=== PATIENT | female | born 1955 | race American Indian/Alaskan Native ===

== ENCOUNTER 2017-08-31 09:15 | Emergency (ER) | payer MEDICAID, MEDICARE ==
[2017-08-31] MEDS ORDERED: Albuterol 0.083% 2.5 MG/3 ML Neb Soln NEB ONE (09:28)
[2017-08-31] MEDS ORDERED: Ibuprofen 200 MG Tab PO PRN (09:29)
--- NOTE | 2017-08-31 09:37 | EDM.PDOC ---
ED HPI GENERAL MEDICAL PROBLEM - General Chief Complaint: Respiratory Problem Stated Complaint: SHORTNESS OF BREATH Time Seen by Provider: 08/31/17 09:25 Source of Information: Reports: Patient, EMS History Limitations: Reports: No Limitations - History of Present Illness INITIAL COMMENTS - FREE TEXT/NARRATIVE: Patient was seen in clinic on saturday and was sent home with duo-nebs and prednisone for COPD. She does not think the prednisone is helping and is making symptoms worse. Oxygen helps breath better. She is still having a hard time getting air into lungs. Onset: Today Onset Date: 08/31/17 Onset Time: 08:00 Duration: Day(s): (5), Chronic, Getting Worse Severity: Moderate Improves with: Reports: Other (oxygen) Worsens with: Reports: None Context: Reports: Activity, Exercise Associated Symptoms: Reports: Headaches, Shortness of Breath Treatments DRINK MIXER: Reports: Breathing Treatments Headache Pain Score (Numeric/FACES): 2 - Related Data Allergies Allergy/AdvReac Type Severity Reaction Status Date / Time aspirin Allergy Bleeding Verified 08/31/17 09:24 Home Meds: Home Meds Albuterol Sulfate [Albuterol Sulfate HFA] 2 puff INH Q4HR PRN 03/22/15 [History] Albuterol/Ipratropium [DuoNeb 3.0-0.5 MG/3 ML] 3 ml NEB Q4H #3 neb 03/22/15 [Rx] Past Medical History Respiratory History: Reports: COPD Social & Family History - Tobacco Use Smoking Status *Q: Current Every Day Smoker Years of Tobacco use: 40 Packs/Tins Daily: 0.5 - Alcohol Use Days Per Week of Alcohol Use: 0 - Recreational Drug Use Recreational Drug Use: No ED ROS GENERAL - Review of Systems Review Of Systems: ROS reveals no pertinent complaints other than HPI. Constitutional: Reports: Weakness, Fatigue HEENT: Reports: No Symptoms Respiratory: Reports: Shortness of Breath, Other (Cannot get air into lungs) Cardiovascular: Reports: Blood Pressure Problem, Dyspnea on Exertion Endocrine: Reports: No Symptoms GI/Abdominal: Reports: No Symptoms : Reports: No Symptoms Musculoskeletal: Reports: No Symptoms Skin: Reports: No Symptoms Neurological: Reports: Headache Psychiatric: Reports: No Symptoms Hematologic/Lymphatic: Reports: No Symptoms Immunologic: Reports: No Symptoms Free Text/Narrative/Comment: Patient was seen in clinic on saturday at [facility] and sent home with edmundo nebs and prednisone. ED EXAM, GENERAL - Physical Exam Exam: See Below Exam Limited By: No Limitations General Appearance: Alert, No Apparent Distress Eye Exam: Bilateral Eye: Normal Inspection Ears: Normal External Exam Nose: Normal Inspection Throat/Mouth: Normal Inspection, No Airway Compromise Head: Atraumatic, Normocephalic Neck: Normal Inspection, Supple, Full Range of Motion. No: Carotid Bruit Respiratory/Chest: Decreased Breath Sounds, Rales. No: Accessory Muscle Use, Retractions, Prolonged Expiration Cardiovascular: Normal Peripheral Pulses, Regular Rate, Rhythm, No Edema, No JVD , No Murmur. No: Diastolic Murmur, Systolic Murmur Peripheral Pulses: 2+: Radial (R) GI/Abdominal: Normal Bowel Sounds, Soft, Non-Tender. No: Distended Extremities: Normal Range of Motion Neurological: Alert, Oriented, CN II-XII Intact. No: Confused, Disoriented, Slow to Respond, Abnormal Gait Psychiatric: Normal Affect, Normal Mood Skin Exam: Warm, Dry, Intact, No Rash Lymphatic: No Adenopathy Course - Vital Signs Last Recorded V/S: Last Vital Signs Temp 35.4 C 08/31/17 09:15 Pulse 127 H 08/31/17 09:15 Resp 28 H 08/31/17 09:15 BP 175/83 H 08/31/17 09:15 Pulse Ox 95 08/31/17 09:15 - Orders/Labs/Meds Orders: Active Orders 24 hr Category Date Time Status RT Aerosol Therapy [RC] ASDIRECTED Care 08/31/17 09:29 Ordered Chest 2V [CR] Stat Exams 08/31/17 09:26 Ordered Ibuprofen [Motrin] Med 08/31/17 09:29 Ordered 400 mg PO Q4H PRN Medication Orders Ibuprofen (Motrin) 400 mg PO Q4H PRN PRN Reason: Pain/Fever Meds: Medications Generic Name Dose Route Start Last Admin Trade Name Freq PRN Reason Stop Dose Admin Ibuprofen 400 mg 08/31/17 09:29 Motrin PO Q4H PRN Pain/Fever Discontinued Medications Generic Name Dose Route Start Last Admin Trade Name Freq PRN Reason Stop Dose Admin Albuterol 2.5 mg 08/31/17 09:28 Proventil Neb Soln NEB 08/31/17 09:29 ONETIME ONE Departure - Departure Time of Disposition: 11:32 Disposition: DC[facility] Condition: Good Clinical Impression: COPD (chronic obstructive pulmonary disease) Qualifiers: COPD type: emphysema Emphysema type: unspecified Qualified Code(s): J43.9 - Emphysema, unspecified - Discharge Information Instructions: Shortness of Breath, [id number], Smoking Cessation, Tips for Success, [id number], Chronic Obstructive Pulmonary Disease Exacerbation, Easy- to-Read Forms: ED Department Discharge Additional Instructions: Patient is to follow-up with her primary care provider on Saturday. She is also instructed to take her DuoNeb every 4 hours. She is also instructed to use her albuterol inhaler when she is short of breath. - My Orders Last 24 Hours: My Active Orders 08/31/17 09:26 Chest 2V [CR] Stat 08/31/17 09:29 RT Aerosol Therapy [RC] ASDIRECTED Ibuprofen [Motrin] 400 mg PO Q4H PRN - Assessment/Plan Last 24 Hours: My Active Orders 08/31/17 09:26 Chest 2V [CR] Stat 08/31/17 09:29 RT Aerosol Therapy [RC] ASDIRECTED Ibuprofen [Motrin] 400 mg PO Q4H PRN
[2017-08-31 10:28] VITALS: BP 148/76
== END 2017-08-31 11:46 | disposition designated cancer center or children's hospital (05) ==
LOC: VM.ED 09:15
DX: J43.9 Emphysema, unspecified (principal); F17.210 Nicotine dependence, cigarettes, uncomplicated; Z88.6 Allergy status to analgesic agent
CPT/HCPCS: 71020; 93005; 94640; 99285; A9270; J7620; 99284-GF

== ENCOUNTER 2017-09-03 16:44 | Inpatient (IN) | payer MEDICAID, MEDICARE ==
[2017-09-03] MEDS ORDERED: Ondansetron 4 MG/2 ML SDV IV PRN (17:05)
[2017-09-03] MEDS ORDERED: Albuterol/Ipratropium 3.0-0.5 MG/3 ML Neb Soln NEB PRN (17:05)
[2017-09-03] MEDS ORDERED: Albuterol 0.083% 2.5 MG/3 ML Neb Soln NEB PRN (17:05)
[2017-09-03] MEDS ORDERED: Acetaminophen 325 MG Tab PO PRN (17:05)
[2017-09-03] MEDS ORDERED: cefTRIAXone 1 GM Vial IVPUSH ONE (17:10)
--- NOTE | 2017-09-03 17:13 | PCM.HP ---
"H&P History of Present Illness - General Date of Service: 09/03/17 Admit Problem/Dx: Admission Diagnosis/Problem Admission Diagnosis/Problem COPD, Severe chronic obstructive pulmonary disease Source of Information: Patient, Family - History of Present Illness Initial Comments - Free Text/Narative: HPI / History / ROS ~ HPI HPI Comments:~Patient is in for ~follow-up exacerbation COPD. ~Not really improving she just picked up her prednisone but intolerant, felt like it made things worse. ~Didn't fill zpack because of cost. ~She gets winded easily. ~The describe some wheeze. ~Not a lot of coughing. ~Denies fever. ~History of severe COPD with last FEV1 in 2011 at 1.2 L or 47% of predicted. ~She does continue to smoke. ~She declined hospital admission two days ago when in ER and is declining today as well. ~She is using duo nebs at home about four times per day she's using albuterol every couple of hours. ~She does not have Combivent or stiolto or long-acting medicine because of cost issues. ~She is on disability for her COPD she is currently working on applications for medical assistance. Shortness of Breath~ Associated symptoms include wheezing. Pertinent negatives include no fever. Fatigue~ Pertinent negatives include no fever. COPD~ She complains of shortness of breath~and wheezing. Pertinent negatives include no fever. Medications MedicationsPriortoVisit Outpatient Medications Prior to Visit Medication Sig Dispense Refill albuterol HFA (ALBUTEROL, VENTOLIN BRAND,) 108 (90 BASE) MCG/ACT inhaler Inhale 2 puffs orally Every 4 hours as needed for wheezing Shake well before using. 1 Inhaler 5 albuterol-ipratropium (DUO-NEB) 2.5-0.5 mg/3 mL inhalation solution Inhale 1 unit-dose (3 mL) by nebulization 4 times a day 100 unit-dose 5 Tiotropium [place]-Olodaterol (STIOLTO RESPIMAT) 2.5-2.5 MCG/ACT AERS Inhale 1 inhalation orally 1 time per day. 4 g 11 azithromycin (ZITHROMAX) 250 mg tablet Take 2 tablets orally today, then 1 tablet every day starting tomorrow until all are taken. 6 tablet 0 predniSONE 20 mg tablet Take 1 1/2 tablet every am for 6 days, starting now. 9 tablet 0 traMADol (ULTRAM) 50 mg tablet Take 1 tablet (50 mg total) by mouth 4 times a day as needed for moderate pain. 40 tablet 1 traZODone (DESYREL) 150 mg tablet Take 1 tablet by mouth every night at bedtime. 30 tablet 5 QUEtiapine (SEROQUEL) 300 mg tablet Take 1 tablet by mouth every night at bedtime. 30 tablet 5 No facility-administered medications prior to visit. Allergies Allergies Allergen Reactions Aspirin Unknown/Not Verified Combivent Nausea Problem List Patient Active Problem List Diagnosis Insomnia 03/25 says this is worse than actual depression 03/25 re-Rx Trazodone, Seroquel COPD (chronic obstructive pulmonary disease) Symptoms but never documentation until PFT's 08/22 08/22 PFT's: 1.21 (47%) / 3.19 (102%) = 38% PEF 180 L/min (52%); after Rx FEV1 < 13%, PEF < 27% 04/25 Rx (had been off > 1 yr): albuterol MDI q 4 hr prn, Duoneb QID; Combivent MDI QID when no neb near Chest pain, non-cardiac 12/13 positive stress test, but negative angiography 03/13 Holter: SVT, Rx Cardizem CD 120 mg daily, didn't continue Peptic ulcer disease Hosp for ulcer disease approx Chronic headache Hx of Rx in past for migraine, but never classic symptoms, more like chronic daily headache Presbyopia Cigarette smoker See COPD, severe 04/25 1 wk post ER visit for exacerbation, still smoking 11/13 ppd Posttraumatic stress disorder 04/21 apparently a long history of this, long-standing Psych F/U Shoulder pain L shoulder. No injury, just overuse Pain with movement always, sometimes at rest 04/17 Ortho consult for L shoulder pain, Rx PT; 04/18 Rx Ultram (NITISH) Generalized anxiety disorder Hx Psych care, 03/25 none recently Chronic back pain Often paravertebral muscle spasm, Rx SOMA 350 mg QID many years 04/15 re-Rx SOMA after being off > 1 yr Depression Rx w. Paxil, Wellbutrin, Trazodone since 04/25 says depression not bad, mostly problem with insomnia Chronic alcoholism in remission 04/21 apparently a long history of this, long-standing Psych F/U 9-12/11 Chem Dep Rx again even through dry since Medical/Surgical/Family/Social PastMedicalHistory Past Medical History: Diagnosis Date Hypertension PastSurgicalHistory History reviewed. No pertinent surgical history. FamilyHistory Family History Problem Relation Age of Onset Heart Attack Brother Heart Attack Brother Heart Disease Brother Other Brother AIDS Diabetes Mother Glaucoma Mother Cataracts Mother Lung Cancer Sister Macular Degeneration Neg Hx Retinal Detachment Neg Hx SocialHistory Social History Social History Marital status: Spouse name: N/A Number of children: N/A Years of education: N/A Occupational History Not on file. Social History Main Topics Smoking status: Current Some Day Smoker Packs/day: 0.10 Types: Cigarettes Smokeless tobacco: Never Used Alcohol use No Comment: None since 2003 Drug use: Yes Special: THC Sexual activity: Not on file Other Topics Concern Not on file Social History Narrative Pt of [facility] in for some years, then [facility]. ~In fdc occas, again 04/21, says has seen Dr. Abreu. ~04/21 - 07/22 [facility], then 07/22- in Chem Dep Rx at [facility], even though she was dry, since . ~11/22 back home in [place], lives with . ~12/26 spent time in fdc again, in [facility]. ~ Centricity info in 04/12/15. ~Last CPE 08/14/12 (just a SS Disability Eval) ROS Review of Systems Constitutional: Negative for fever. Respiratory: Positive for shortness of breath~and wheezing. ~ Physical / Results BP 136/70 ~Pulse 108 ~Temp 98.5 F (36.9 C) (Tympanic) ~SpO2 99%|| Physical Exam~ Constitutional: She appears well-developed~and well-nourished. No distress. Cardiovascular: Regular rhythm. ~ tachy~ Pulmonary/Chest: She is in respiratory distress~(mild, still able to speak full sent). She has wheezes. She has no rales. Skin: She is not diaphoretic. Assessment / Plan Problem List Items Addressed This Visit~ None Plan: AECOPD Failed outpatient tx, O2 sats only 85% here on RA Admit for nebs, O2, IV steroids, possible ABX Check infl markers but no infiltrate by repeat CXR Work with community mental health social worker on getting controlled meds covered and smoking cessation - Related Data Allergies/Adverse Reactions: Allergies Allergy/AdvReac Type Severity Reaction Status Date / Time albuterol [From Combivent] Allergy Nausea Verified 09/03/17 17:07 aspirin Allergy Bleeding Verified 08/31/17 09:24 ipratropium [From Combivent] Allergy Nausea Verified 09/03/17 17:07 Home Medications: Home Meds Albuterol Sulfate [Albuterol Sulfate HFA] 2 puff INH Q4HR PRN 03/22/15 [History] Albuterol/Ipratropium [DuoNeb 3.0-0.5 MG/3 ML] 3 ml NEB QID 09/03/17 [History] Tiotropium Br/Olodaterol HCl [Stiolto Respimat Inhal [place]] 1 inh INH DAILY [History] Past Medical History Respiratory History: Reports: COPD Social & Family History - Tobacco Use Smoking Status *Q: Current Some Day Smoker Years of Tobacco use: 45 Packs/Tins Daily: 0.5 Second Hand Smoke Exposure: Yes - Caffeine Use Caffeine Use: Reports: Coffee, Soda - Alcohol Use Days Per Week of Alcohol Use: 0 - Recreational Drug Use Recreational Drug Use: Yes Drug Use in Last 12 Months: Yes Recreational Drug Type: Reports: Marijuana/Hashish Recreational Drug Use Frequency: Rarely H&P Review of Systems - Review of Systems: Review Of Systems: See Below Exam - Exam Exam: See Below - Vital Signs Weight: 56.608 kg *Q Meaningful Use (ADM) - VTE *Q VTE Criteria *Q: - Stroke *Q Stroke Criteria *Q: - AMI *Q AMI Criteria *Q: Problem List Initiated/Reviewed/Updated: Yes Orders Last 24hrs: Active Orders 24 hr Category Date Time Status Admission Status [Patient Status] [ADT] Routine ADT 09/03/17 16:46 Active Patient Status [ADT] Routine ADT 09/03/17 17:05 Ordered Oxygen Therapy [RC] PRN Care 09/03/17 17:05 Ordered RT Aerosol Therapy [RC] ASDIRECTED Care 09/03/17 17:08 Ordered Up With Assistance [RC] ASDIRECTED Care 09/03/17 17:05 Ordered VTE/DVT Education [RC] PER UNIT ROUTINE Care 09/03/17 17:05 Ordered Vital Signs [RC] Q4H Care 09/03/17 17:05 Ordered Consult to Distribution Specialist [CONS] Routine Cons 09/03/17 17:05 Ordered Respiratory Care Assess and Treatment [CONS] Routine Cons 09/03/17 17:05 Ordered Regular Diet [DIET] Diet 09/03/17 Dinner Ordered BLOOD GAS ARTERIAL [BG] Routine Lab 09/03/17 17:05 Ordered C-REACTIVE PROTEIN [CHEM] Routine Lab 09/03/17 17:05 Ordered CBC WITH AUTO DIFF [HEME] Routine Lab 09/03/17 17:05 Ordered COMPREHENSIVE METABOLIC PN,CMP [CHEM] Routine Lab 09/03/17 17:05 Ordered MAGNESIUM [CHEM] Routine Lab 09/03/17 17:05 Ordered UA W/MICROSCOPIC [URIN] Routine Lab 09/03/17 17:05 Uncollected Acetaminophen [Tylenol] Med 09/03/17 17:05 Ordered 650 mg PO Q4H PRN Albuterol [Proventil Neb Soln] Med 09/03/17 17:05 Ordered 2.5 mg NEB Q2H PRN Albuterol [Take Home: Albuterol 6.7 GM, 1 INH Pack] Med 09/03/17 17:11 Ordered 2 puff INH Q4HR PRN Albuterol/Ipratropium [DuoNeb 3.0-0.5 MG/3 ML] Med 09/03/17 17:05 Ordered 3 ml NEB Q4H PRN Albuterol/Ipratropium [DuoNeb 3.0-0.5 MG/3 ML] Med 09/03/17 20:00 Ordered 3 ml NEB QID Enoxaparin [Lovenox] Med 09/03/17 17:15 Ordered 30 mg SUBCUT DAILY HYDROmorphone [Dilaudid] Med 09/03/17 17:05 Ordered 0.25 mg IVPUSH Q2H PRN Nicotine [Habitrol] Med 09/03/17 17:15 Ordered 14 mg TRDERM DAILY Ondansetron [Zofran] Med 09/03/17 17:05 Ordered 4 mg IV Q6H PRN Sodium Chloride 0.9% [Saline Flush] Med 09/03/17 17:05 Ordered 10 ml FLUSH ASDIRECTED PRN Temazepam [Restoril] Med 09/03/17 17:05 Ordered 15 mg PO BEDTIME PRN Tiotropium Br/Olodaterol HCl [Stiolto Respimat Inhal Med 09/03/17 17:15 Ordered Driggs] 1 inh INH DAILY cefTRIAXone [Rocephin] Med 09/03/17 17:10 Once 1 gm IVPUSH ONETIME ONE methylPREDNISolone Sod Succ [Solu-MEDROL] Med 09/03/17 17:15 Ordered 40 mg IVPUSH Q12H Peripheral IV Insertion Adult [OM.PC] Routine Oth 09/03/17 17:05 Ordered Saline Lock Insert [OM.PC] Routine Oth 09/03/17 17:05 Ordered Resuscitation Status Routine Resus Stat 09/03/17 17:05 Ordered Medication Orders Acetaminophen (Tylenol) 650 mg PO Q4H PRN PRN Reason: Pain (Mild 1-3)/fever Albuterol (Proventil Neb Soln) 2.5 mg NEB Q2H PRN PRN Reason: Dyspnea Albuterol/Ipratropium (Duoneb 3.0-0.5 Mg/3 Ml) 3 ml NEB Q4H PRN PRN Reason: dyspnea/wheezing Ceftriaxone Sodium (Rocephin) 1 gm IVPUSH ONETIME ONE Stop: 09/03/17 17:11 Enoxaparin Sodium (Lovenox) 30 mg SUBCUT DAILY [facility] Hydromorphone HCl (Dilaudid) 0.25 mg IVPUSH Q2H PRN PRN Reason: Pain (severe 7-10) Methylprednisolone Sodium Succinate (Solu-Medrol) 40 mg IVPUSH Q12H [facility] Nicotine (Habitrol) 14 mg TRDERM DAILY [facility] Ondansetron HCl (Zofran) 4 mg IV Q6H PRN PRN Reason: Nausea/Vomiting Sodium Chloride (Saline Flush) 10 ml FLUSH ASDIRECTED PRN PRN Reason: Keep Vein Open Temazepam (Restoril) 15 mg PO BEDTIME PRN PRN Reason: Sleep"
[2017-09-03] MEDS ORDERED: Albuterol 8 GM Inhaler INH PRN (17:14)
[2017-09-03 17:56] LABS: CHLORIDE,CL 101 mmol/L (98-107); SODIUM,NA 144 mmol/L (136-145)
[2017-09-03] MEDS: Nicotine 14 MG/24 Hr Patch TRDERM SCH (18:06)
[2017-09-03] MEDS: methylPREDNISolone Sodium Succinate 40 MG/1 ML SDV IVPUSH SCH (18:07)
[2017-09-03] MEDS: Enoxaparin 40 MG/0.4 ML Syringe SUBCUT SCH (18:07)
[2017-09-03] MEDS: Albuterol/Ipratropium 3.0-0.5 MG/3 ML Neb Soln NEB SCH (20:22)
[2017-09-03] MEDS: Temazepam 15 MG Cap PO PRN (20:39)
[2017-09-04] MEDS: HYDROmorphone 1 MG/ML Syringe IVPUSH PRN ×4 (04:19→20:40)
[2017-09-04] MEDS: Sodium Chloride 0.9% 10 ML Syringe FLUSH PRN ×3 (04:20→20:42)
[2017-09-04] MEDS: methylPREDNISolone Sodium Succinate 40 MG/1 ML SDV IVPUSH SCH ×2 (05:49→18:19)
[2017-09-04] MEDS: Albuterol/Ipratropium 3.0-0.5 MG/3 ML Neb Soln NEB SCH ×4 (07:14→20:39)
[2017-09-04] MEDS: Nicotine 14 MG/24 Hr Patch TRDERM SCH (07:54)
[2017-09-04] MEDS: Enoxaparin 40 MG/0.4 ML Syringe SUBCUT SCH (07:54)
[2017-09-04] MEDS: Temazepam 15 MG Cap PO PRN (20:40)
[2017-09-05] MEDS: methylPREDNISolone Sodium Succinate 40 MG/1 ML SDV IVPUSH SCH ×2 (05:35→13:59)
[2017-09-05] MEDS: Sodium Chloride 0.9% 10 ML Syringe FLUSH PRN (05:35)
[2017-09-05] MEDS: Albuterol/Ipratropium 3.0-0.5 MG/3 ML Neb Soln NEB SCH ×2 (06:59→10:46)
[2017-09-05] MEDS: Enoxaparin 40 MG/0.4 ML Syringe SUBCUT SCH (07:59)
[2017-09-05] MEDS: Nicotine 14 MG/24 Hr Patch TRDERM SCH (07:59)
[2017-09-05 11:55] VITALS: BP 146/71
[2017-09-05] MEDS ORDERED: cefTRIAXone 1 GM Vial IVPUSH STA (13:29)
--- NOTE | 2017-09-12 11:01 | PCM.DCSUM1 ---
Discharge Summary - Hospital Course Free Text/Narrative:: Patient was admitted for acute exacerbation of severe COPD. Actually been going on for about a week or so. Failed outpatient therapy. Required supplemental oxygen. Improved pretty briskly with Solu-Medrol Rocephin in the hospital. Did desaturate to 81% with ambulation she will be sent home on 2 L to use with activity. ~90% at rest. She'll be given sample of long acting inhaler Bevespi, she's working on getting her prescription coverage back in place. Nicotine patches placed here she's working on cutting down on smoking. Follow-up in clinic about one week or so. nephrology social worker saw patient to help her with prescriptions and smoking cessation. - Discharge Data Discharge Date: 09/05/17 Discharge Disposition: Home, Self-Care 01 Condition: Good - Patient Summary/Data Consults: Consultations 09/03/17 17:05 Consult to Manager Event [CONS] Routine Respiratory Care Assess and Treatment [CONS] Routine 09/04/17 11:33 Consult to Respiratory Therapy [Respiratory Care Assess and Treatment] [CONS] Routine - Discharge Plan Prescriptions/Med Rec: Glycopyrrolate/Formoterol Fum [Bevespi Aerosphere Inhaler] 10.7 gm IH BID #1 hfa.aer.ad Nicotine [Habitrol] 14 mg TRDERM DAILY #30 patch Home Medications: Home Meds Albuterol Sulfate [Albuterol Sulfate HFA] 2 puff INH Q4HR PRN 03/22/15 [History] Albuterol/Ipratropium [DuoNeb 3.0-0.5 MG/3 ML] 3 ml NEB QID 09/03/17 [History] Acetaminophen [Tylenol] 650 mg PO Q4H PRN tablet 09/05/17 [Rx] Albuterol [IJD: Albuterol] 2.5 mg NEB Q2H PRN nebule 09/05/17 [Rx] Albuterol/Ipratropium [DuoNeb 3.0-0.5 MG/3 ML] 3 ml NEB Q4H PRN neb 09/05/17 [ Rx] Glycopyrrolate/Formoterol Fum [Bevespi Aerosphere Inhaler] 10.7 gm IH BID #1 hfa.aer.ad 09/05/17 [Rx] Nicotine [Habitrol] 14 mg TRDERM DAILY #30 patch 09/05/17 [Rx] - Discharge Summary/Plan Comment DC Time >30 min.: No - Patient Data Vitals - Most Recent: Last Vital Signs Temp 36.4 C 09/05/17 10:00 Pulse 117 H 09/05/17 10:00 Resp 20 09/05/17 10:00 BP 146/71 H 09/05/17 10:00 Pulse Ox 91 L 09/05/17 10:48 Weight - Most Recent: 56.608 kg Med Orders - Current: Current Medications Discontinued Medications Acetaminophen (Tylenol) 650 mg PO Q4H PRN PRN Reason: Pain (Mild 1-3)/fever Last Admin: 09/04/17 07:54 Dose: 650 mg Albuterol (Proventil Neb Soln) 2.5 mg NEB Q2H PRN PRN Reason: Dyspnea Albuterol (Ventolin Hfa) 0 gm INH Q4H PRN PRN Reason: Shortness of Breath Albuterol/Ipratropium (Duoneb 3.0-0.5 Mg/3 Ml) 3 ml NEB Q4H PRN PRN Reason: dyspnea/wheezing Last Admin: 09/04/17 04:19 Dose: 3 ml Albuterol/Ipratropium (Duoneb 3.0-0.5 Mg/3 Ml) 3 ml NEB QIDRT [facility] Last Admin: 09/05/17 10:46 Dose: 3 ml Ceftriaxone Sodium (Rocephin) 1 gm IVPUSH ONETIME ONE Stop: 09/03/17 17:11 Last Admin: 09/03/17 18:07 Dose: 1 gm Ceftriaxone Sodium (Rocephin) 1 gm IVPUSH ONETIME STA Stop: 09/05/17 13:30 Last Admin: 09/05/17 13:58 Dose: 1 gm Enoxaparin Sodium (Lovenox) 40 mg SUBCUT DAILY [facility] Last Admin: 09/05/17 07:59 Dose: 40 mg Hydromorphone HCl (Dilaudid) 0.25 mg IVPUSH Q2H PRN PRN Reason: Pain (severe 7-10) Last Admin: 09/04/17 20:40 Dose: 0.25 mg Methylprednisolone Sodium Succinate (Solu-Medrol) 40 mg IVPUSH Q12H [facility] Last Admin: 09/05/17 13:59 Dose: 40 mg Nicotine (Habitrol) 14 mg TRDERM DAILY [facility] Last Admin: 09/05/17 07:59 Dose: 14 mg Non-Formulary Medication (Tiotropium Br/Olodaterol Hcl [Stiolto Respimat Inhal [place]]) 1 inh INH DAILY [facility] Last Admin: 09/05/17 11:58 Dose: Not Given Ondansetron HCl (Zofran) 4 mg IV Q6H PRN PRN Reason: Nausea/Vomiting Sodium Chloride (Saline Flush) 10 ml FLUSH ASDIRECTED PRN PRN Reason: Keep Vein Open Last Admin: 09/05/17 05:35 Dose: 10 ml Temazepam (Restoril) 15 mg PO BEDTIME PRN PRN Reason: Sleep Last Admin: 09/04/17 20:40 Dose: 15 mg *Q Meaningful Use (DIS) - VTE *Q VTE Criteria *Q: - Stroke *Q Stroke Criteria *Q: - AMI *Q AMI Criteria *Q:
== END 2017-09-05 14:25 | disposition home or self-care (01) | DRG 192 ==
LOC: VM.MS 16:50
PROVIDERS: ADMIT Family Medicine; ATTEND Family Medicine
DX: J44.1 Chronic obstructive pulmonary disease with (acute) exacerbation (principal); G47.00 Insomnia, unspecified; F17.210 Nicotine dependence, cigarettes, uncomplicated; F43.10 Post-traumatic stress disorder, unspecified; F41.1 Generalized anxiety disorder; M25.512 Pain in left shoulder; G89.29 Other chronic pain; M54.9 Dorsalgia, unspecified; I10 Essential (primary) hypertension; Z79.51 Long term (current) use of inhaled steroids; Z79.899 Other long term (current) drug therapy; Z79.52 Long term (current) use of systemic steroids
CPT/HCPCS: 36600; 80053; 81001; 82803; 83735; 85025; 86140; 94640; 94760; A9270-GY; J0696; J1170; J1650; J2920; J7050

== ENCOUNTER 2020-01-17 17:09 | Emergency (ER) | payer MEDICAID, MEDICARE ==
--- NOTE | 2020-01-17 18:01 | EDM.PDOC ---
ED HPI GENERAL MEDICAL PROBLEM - General Chief Complaint: Respiratory Problem Stated Complaint: "I'm dying" Time Seen by Provider: 01/17/20 17:40 Source of Information: Reports: Patient, EMS History Limitations: Reports: No Limitations - History of Present Illness INITIAL COMMENTS - FREE TEXT/NARRATIVE: Patient presents to ER per EMS with increased shortness of breath, generalized body aches and "feel like I'm dying". States has been declining over the last 2 months, more short of breath and weak. Appetite has not changed. Has not lost weight. Does intermittently have sputum with her cough, was blood-tinger 2 weeks ago but was also having bloody noses at that time. States "called the ambulance because I need to be put on hospice". Has not seen her doctor for some time as she "can't afford it". Denies any acute changes, "just slow gradual changes". Relates that has a concentrator at home and uses 4.5 to 5 liters of oxygen, does not get portable tanks anymore as she "can't afford them " and it limits her ability to go anywhere. Does still maintain small household duties. Has to stop and rest every 5 minutes or so. Has history of COPD. Onset: Gradual Duration: Week(s):, Chronic Location: Reports: Chest Severity: Severe Improves with: Reports: Rest Worsens with: Reports: Movement Associated Symptoms: Reports: Cough, cough w sputum, Shortness of Breath, Weakness. 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 Generalized Pain Score (Numeric/FACES): 6 - Related Data Allergies Allergy/AdvReac Type Severity Reaction Status Date / Time aspirin AdvReac Bleeding Verified 01/17/20 18:04 Home Meds: Home Meds Albuterol Sulfate [Albuterol Sulfate HFA] 2 puff INH Q4HR PRN 03/22/15 [History] Albuterol/Ipratropium [DuoNeb 3.0-0.5 MG/3 ML] 3 ml NEB QID 09/03/17 [History] Acetaminophen [Tylenol] 650 mg PO Q4H PRN tablet 09/05/17 [Rx] Albuterol [IJD: Albuterol] 2.5 mg NEB Q2H PRN nebule 09/05/17 [Rx] Albuterol/Ipratropium [DuoNeb 3.0-0.5 MG/3 ML] 3 ml NEB Q4H PRN neb 09/05/17 [ Rx] Glycopyrrolate/Formoterol Fum [Bevespi Aerosphere Inhaler] 10.7 gm IH BID #1 hfa.aer.ad 09/05/17 [Rx] Nicotine [Habitrol] 14 mg TRDERM DAILY #30 patch 09/05/17 [Rx] Past Medical History Cardiovascular History: Reports: Heart Murmur, Other (See Below) Other Cardiovascular History: Rheumatic fever as a child. 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 - Infectious Disease History Infectious Disease History: Reports: Chicken Pox, Rheumatic Fever - Past Surgical History Musculoskeletal Surgical History: Reports: None Social & Family History - Family History Family Medical History: Noncontributory - Tobacco Use Smoking Status *Q: Current Every Day Smoker - Caffeine Use Caffeine Use: Reports: Coffee, Soda ED ROS GENERAL - Review of Systems Review Of Systems: See Below Constitutional: Reports: Malaise, Weakness, Fatigue. Denies: Fever, Chills, Decreased Appetite HEENT: Reports: No Symptoms Respiratory: Reports: Shortness of Breath, Pleuritic Chest Pain, Cough Cardiovascular: Denies: Chest Pain, Edema, Lightheadedness Endocrine: Reports: Fatigue GI/Abdominal: Denies: Abdominal Pain, Constipation, Diarrhea, Nausea, Vomiting : Reports: No Symptoms Musculoskeletal: Reports: No Symptoms Skin: Reports: No Symptoms Neurological: Reports: No Symptoms Psychiatric: Reports: No Symptoms ED EXAM, GENERAL - Physical Exam Exam: See Below Exam Limited By: No Limitations General Appearance: Alert, WD/WN, No Apparent Distress Ears: Normal External Exam, Normal TMs Nose: Normal Inspection, Normal Mucosa, No Blood Throat/Mouth: Normal Inspection, Other (mucous membranes dry) Head: Normocephalic Neck: Normal Inspection, Supple, Non-Tender Respiratory/Chest: No Respiratory Distress, Decreased Breath Sounds Cardiovascular: Regular Rate, Rhythm GI/Abdominal: Normal Bowel Sounds, Soft, Tender (lower quadrants) Extremities: Normal Inspection, No Pedal Edema Neurological: Alert, Oriented Skin Exam: Warm, Dry Course - Vital Signs Last Recorded V/S: Last Vital Signs Temp 97.8 F 01/17/20 17:15 Pulse 110 H 01/17/20 17:15 Resp 24 H 01/17/20 17:15 BP 157/76 H 01/17/20 17:15 Pulse Ox 99 01/17/20 17:15 - Orders/Labs/Meds Labs: Laboratory Tests 01/17/20 01/17/20 01/17/20 Range/Units 18:10 18:10 18:10 WBC 6.7 (4.0-10.0) x10^3/uL RBC 4.07 (4.00-5.50) x10^6/uL Hgb 12.0 D (12.0-16.0) g/dL Hct 39.5 (33.0-47.0) % MCV 97.1 H D (78.0-93.0) fL MCH 29.5 (26.0-32.0) pg MCHC 30.4 L (32.0-36.0) g/dL RDW Coeff of Luis Enrique 11.6 (10.0-15.0) % Plt Count 241 D (130-400) x10^3/uL Neut % (Auto) 67.7 (50.0-80.0) % Lymph % (Auto) 23.7 L (25.0-50.0) % [place] % (Auto) 7.6 (2.0-11.0) % Eos % (Auto) 0.7 (0.0-4.0) % Baso % (Auto) 0.3 (0.2-1.2) % D-Dimer, Quantitative 0.51 (<=0.58) mg/LFEU Sodium 143 (136-145) mmol/L Potassium 4.1 (3.5-5.1) mmol/L Chloride 99 (98-107) mmol/L Carbon Dioxide 43 H (21-32) mmol/L Anion Gap 5.1 L (10-20) mmol/L BUN 9 (7-18) mg/dL Creatinine 0.6 (0.55-1.02) mg/dL Est Cr Clr Drug Dosing 80.42 mL/min Estimated GFR (MDRD) > 60 Glucose 113 H (74-106) mg/dL Calcium 9.1 (8.5-10.1) mg/dL Corrected Calcium 9.58 (8.5-10.1) mg/dL Total Bilirubin 0.5 (0.2-1.0) mg/dL AST 29 (15-37) U/L ALT 23 (14-59) U/L Alkaline Phosphatase 90 (46-116) U/L C-Reactive Protein < 0.2 (<=0.9) mg/dL NT-Pro-B Natriuret Pep 34 (<=125) pg/mL Total Protein 7.6 (6.4-8.2) g/dL Albumin 3.4 (3.4-5.0) g/dL Globulin 4.2 Albumin/Globulin Ratio 0.81 - Re-Assessments/Exams Free Text/Narrative Re-Assessment/Exam: 01/17/20 18:55 Labs are all stable. Xray report shows COPD, constipation, no other acute changes. Discussed request for hospice and informed she would need a face to face visit with her primary care provider in regards to this, should reach out to him tomorrow. Departure - Departure Time of Disposition: 18:56 Disposition: Home, Self-Care 01 Condition: Fair Clinical Impression: COPD (chronic obstructive pulmonary disease) Qualifiers: COPD type: emphysema Emphysema type: unspecified Qualified Code(s): J43.9 - Emphysema, unspecified - Discharge Information *PRESCRIPTION DRUG MONITORING PROGRAM REVIEWED*: No *COPY OF PRESCRIPTION DRUG MONITORING REPORT IN PATIENT MARA: No Forms: ED Department Discharge Additional Instructions: 1. Rest 2. Oxygen as directed 3. Miralax or Metamucil for constipation 4. Push fluids 5. Follow up with Dr. Choudhary for a face to face meeting in regards to qualification for hospice. Sepsis Event Note - Focused Exam Vital Signs: Vital Signs Temp Pulse Resp BP Pulse Ox 01/17/20 17:15 97.8 F 110 H 24 H 157/76 H 99 Date Exam was Performed: 01/17/20 Time Exam was Performed: 18:54
[2020-01-17 18:46] LABS: CHLORIDE,CL 99 mmol/L (98-107); SODIUM,NA 143 mmol/L (136-145)
[2020-01-17 18:47] LABS: ANION GAP 5.1 mmol/L (10-20)
--- NOTE | 2020-01-17 18:47 | CR ---
[id number] RAD/RAD Abdomen 3V EXAM: RAD Abdomen 3V INDICATION: SOB COMPARISON: August 31, 2017 chest radiograph. FINDINGS: Mild scarring or atelectasis in the lung bases. Chronic obstructive pulmonary disease. No acute infiltrates. Normal heart size. Mildly prominent colonic stool volume. No bowel dilation, free air or pneumatosis is seen. No pathologic calcifications or osseous lesions are identified. IMPRESSION: 1. Mildly prominent colonic stool volume. 2. Chronic obstructive pulmonary disease. El Dhaliwal MD 01/17/20 1846 Thank you for allowing us to participate in the care of your patient.
[2020-01-17 19:24] VITALS: BP 145/72; PULSE 89
== END 2020-01-17 19:10 | disposition home or self-care (01) ==
LOC: VM.ED 17:09
DX: J43.9 Emphysema, unspecified (principal); F17.200 Nicotine dependence, unspecified, uncomplicated; Z88.6 Allergy status to analgesic agent
CPT/HCPCS: 36415; 74022; 80053; 83880; 85025; 85379; 86140; 99284-GF; 99285-25

== ENCOUNTER 2020-04-15 10:05 | Emergency (ER) | payer MEDICARE ==
[2020-04-15] MEDS ORDERED: Lactated Ringers 1,000 ML IV ONE (10:07)
[2020-04-15] MEDS ORDERED: Albuterol 0.083% 2.5 MG/3 ML Neb Soln NEB ONE (10:41)
[2020-04-15] MEDS ORDERED: Budesonide 0.5 MG/2 ML Neb Susp NEB ONE (10:41)
[2020-04-15] MEDS ORDERED: LORazepam 2 MG/ML SDV IVPUSH ONE (10:42)
--- NOTE | 2020-04-15 10:43 | EDM.PDOC ---
ED HPI GENERAL MEDICAL PROBLEM - General Stated Complaint: ER Time Seen by Provider: 04/15/20 10:35 Source of Information: Reports: Patient, EMS - History of Present Illness INITIAL COMMENTS - FREE TEXT/NARRATIVE: Patient comes emergency department today from home by ambulance with complaints of anxiety and increasing shortness of breath. This patient over the past 3 to 4 days has has worsening shortness of breath and difficulty breathing. Her cough is about baseline for her chronically with her COPD. She has had no fever no chills. She has no change in the amount or consistency of the sputum that she does produce with her cough with her COPD. She does relate that she is trying to quit and she is about at 1 cigarette a day. She also has concerns about her shortness of breath shakiness being from anxiety. She recently had a big change in her personal life that she does not want to share. She is unable to deal with her anxiety at this time. She used to see a psychiatrist and counselor in the past but she does not see them anymore as she cannot afford it. She has been taking her home medications as usual. She has no pain in her chest weakness dizziness lightheadedness. No syncope. Chronically on oxygen at home for COPD. She has never seen a distribution lead for her COPD and only sees her primary care provider. - Related Data Allergies Allergy/AdvReac Type Severity Reaction Status Date / Time aspirin AdvReac Bleeding Verified 04/15/20 11:02 Home Meds: Home Meds Albuterol Sulfate [Albuterol Sulfate HFA] 2 puff INH Q4HR PRN 03/22/15 [History] Albuterol/Ipratropium [DuoNeb 3.0-0.5 MG/3 ML] 3 ml NEB QID 09/03/17 [History] Acetaminophen [Tylenol] 650 mg PO Q4H PRN tablet 09/05/17 [Rx] Albuterol [IJD: Albuterol] 2.5 mg NEB Q2H PRN nebule 09/05/17 [Rx] Albuterol/Ipratropium [DuoNeb 3.0-0.5 MG/3 ML] 3 ml NEB Q4H PRN neb 09/05/17 [ Rx] Glycopyrrolate/Formoterol Fum [Bevespi Aerosphere Inhaler] 10.7 gm IH BID #1 hfa.aer.ad 09/05/17 [Rx] Nicotine [Habitrol] 14 mg TRDERM DAILY #30 patch 09/05/17 [Rx] Azithromycin 500 mg PO DAILY #7 tablet 04/15/20 [Rx] LORazepam [Lorazepam] 0.5 mg PO BID PRN #9 tablet 04/15/20 [Rx] predniSONE 40 mg PO DAILY #10 tab 04/15/20 [Rx] Past Medical History Cardiovascular History: Reports: Heart Murmur, Other (See Below) Other Cardiovascular History: Rheumatic fever as a child. 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 - Infectious Disease History Infectious Disease History: Reports: Chicken Pox, Rheumatic Fever - Past Surgical History Musculoskeletal Surgical History: Reports: None Social & Family History - Family History Family Medical History: Noncontributory - Caffeine Use Caffeine Use: Reports: Coffee, Soda ED ROS GENERAL - Review of Systems Review Of Systems: Comprehensive ROS is negative, except as noted in HPI. ED EXAM, GENERAL - Physical Exam Exam: See Below Exam Limited By: No Limitations General Appearance: Alert, WD/WN, Moderate Distress Eye Exam: Bilateral Eye: EOMI, PERRL Ears: Normal External Exam, Normal TMs Nose: Normal Inspection Throat/Mouth: Normal Inspection, Normal Lips Head: Atraumatic, Normocephalic Neck: Normal Inspection, Supple Respiratory/Chest: Respiratory Distress (Mild), Decreased Breath Sounds ( Profoundly decreased lung sounds throughout with minimal to no air movement. Surprisingly the patient does not appear in that much distress and I wonder how much of this is chronic for her.), Accessory Muscle Use Cardiovascular: Normal Peripheral Pulses, Regular Rate, Rhythm, Tachycardia Peripheral Pulses: 2+: Radial (L), Radial (R), Posterior Tibial (L), Posterior Tibial (R), Dorsalis Pedis (L), Dorsalis Pedis (R) GI/Abdominal: Normal Bowel Sounds, Soft, Non-Tender (Female) Exam: Deferred Rectal (Female) Exam: Deferred Back Exam: Normal Inspection, Full Range of Motion Extremities: Normal Inspection, Normal Range of Motion, Non-Tender, No Pedal Edema, Normal Capillary Refill Neurological: Alert, Oriented, Normal Cognition, No Motor/Sensory Deficits Psychiatric: Anxious Skin Exam: Warm, Dry, Intact, Normal Color Lymphatic: No Adenopathy EKG INTERPRETATION EKG Date: 04/15/20 Time: 10:01 Rhythm: NSR (Sinus tach) Rate (Beats/Min): 120 [place]: Normal P-Wave: Present QRS: Normal ST-T: Normal QT: Normal Comparison: No Change Course - Vital Signs Last Recorded V/S: Last Vital Signs Temp 36.6 C 04/15/20 10:05 Pulse 112 H 04/15/20 12:30 Resp 20 04/15/20 12:30 BP 138/68 04/15/20 12:30 Pulse Ox 99 04/15/20 12:30 - Orders/Labs/Meds Orders: Active Orders 24 hr Category Date Time Status EKG Documentation Completion [RC] STAT Care 04/15/20 10:06 Active RT Aerosol Therapy [RC] ASDIRECTED Care 04/15/20 10:41 Active Labs: Laboratory Tests 04/15/20 04/15/20 04/15/20 Range/Units 10:16 10:16 10:16 WBC 7.2 (4.0-10.0) x10^3/uL RBC 3.79 L (4.00-5.50) x10^6/uL Hgb 11.1 L (12.0-16.0) g/dL Hct 37.5 (33.0-47.0) % MCV 98.9 H (78.0-93.0) fL MCH 29.3 (26.0-32.0) pg MCHC 29.6 L (32.0-36.0) g/dL RDW Coeff of Luis Enrique 12.0 (10.0-15.0) % Plt Count 284 (130-400) x10^3/uL Neut % (Auto) 63.1 (50.0-80.0) % Lymph % (Auto) 27.0 (25.0-50.0) % [place] % (Auto) 8.1 (2.0-11.0) % Eos % (Auto) 1.4 (0.0-4.0) % Baso % (Auto) 0.4 (0.2-1.2) % Sodium 143 (136-145) mmol/L Potassium 3.9 (3.5-5.1) mmol/L Chloride 98 (98-107) mmol/L Carbon Dioxide 43 H (21-32) mmol/L Anion Gap 5.9 L (10-20) mmol/L BUN 8 (7-18) mg/dL Creatinine 0.7 (0.55-1.02) mg/dL Est Cr Clr Drug Dosing TNP Estimated GFR (MDRD) > 60 Glucose 141 H (74-106) mg/dL Calcium 8.8 (8.5-10.1) mg/dL Corrected Calcium 9.28 (8.5-10.1) mg/dL Total Bilirubin 0.3 (0.2-1.0) mg/dL AST 28 (15-37) U/L ALT 23 (14-59) U/L Alkaline Phosphatase 98 (46-116) U/L Troponin I < 0.017 (<=0.056) ng/mL C-Reactive Protein 0.3 (<=0.9) mg/dL Total Protein 7.5 (6.4-8.2) g/dL Albumin 3.4 (3.4-5.0) g/dL Globulin 4.1 Albumin/Globulin Ratio 0.83 Meds: Medications Discontinued Medications Generic Name Dose Route Start Last Admin Trade Name Freq PRN Reason Stop Dose Admin Albuterol 2.5 mg 04/15/20 10:41 04/15/20 11:09 Proventil Neb Soln [facility] 04/15/20 10:42 2.5 mg ONETIME ONE Administration Azithromycin 500 mg 04/15/20 11:23 04/15/20 11:28 Zithromax PO 04/15/20 11:24 500 mg ONETIME ONE Administration Budesonide 1 mg 04/15/20 10:41 04/15/20 10:54 Pulmicort NEB 04/15/20 10:42 1 mg ONETIME ONE Administration Lactated Ringer's 1,000 mls @ 999 mls/hr 04/15/20 10:07 04/15/20 10:18 Ringers, Lactated IV 04/15/20 11:07 999 mls/hr ONETIME ONE Administration Lorazepam 1 mg 04/15/20 10:42 04/15/20 10:57 Ativan IVPUSH 04/15/20 10:43 1 mg STAT ONE Administration Methylprednisolone Sodium Succinate 125 mg 04/15/20 11:23 04/15/20 11:29 Solu-Medrol IVPUSH 04/15/20 11:24 125 mg ONETIME ONE Administration - Radiology Interpretation Free Text/Narrative:: Chest x-ray per radiology shows no acute findings. - Re-Assessments/Exams Free Text/Narrative Re-Assessment/Exam: 04/15/20 EKG was unchanged from previous. Received an albuterol and duo neb in the ambulance. She received Solu-Medrol fluid bolus labs drawn budesonide and albuterol in the emergency department. Chest x-ray is negative for pneumonia. Given lorazepam 1 mg IV push. The above therapy she did feel quite a bit better. She did have some improvement of the aeration on her lung sounds although it is still quite diminished and I think this is probably chronic for her. Anxiety is much improved as well. Her laboratory evaluation is rather unremarkable. We will start her on burst of steroids for the next 5 days prednisone 40 mg p.o. daily. Azithromycin 500 mg a day for the next 7 days. And lorazepam to be used sparingly 0.5 mg p.o. twice daily as needed anxiety caution sedation and driving. She is comfortable with this plan and her questions are answered. Discussed the concern for not only anxiety as well as a COPD exacerbation without the presence of pneumonia although multiple studies have shown that antibiotic therapy in the presence of a COPD exacerbation is best practice at this time. Departure - Departure Time of Disposition: 12:15 Disposition: Home, Self-Care 01 Clinical Impression: COPD with acute exacerbation, Anxiety - Discharge Information Prescriptions: Azithromycin 500 mg PO DAILY #7 tablet LORazepam [Lorazepam] 0.5 mg PO BID PRN #9 tablet PRN Reason: Anxiety predniSONE 40 mg PO DAILY #10 tab Instructions: Chronic Obstructive Pulmonary Disease Exacerbation, [id number] Referrals: Louis Gresham MD [Primary Care Provider] - Forms: ED Department Discharge Additional Instructions: Continue previous home therapies. Azithromycin 500mg by mouth once daily for the next 7 days. First dose on saturday. RX to Pharmacy. Prednisone, 40mg a day for the next 5 days. RX to the Pharmacy. Consider seeing a counselor for your anxiety. Lorazepam 1 tablet twice daily as needed for anxiety. Rx to the pharmacy. Caution sedation do not take while driving or drinking alcohol. Return to the ED if new or worsening symptoms. Follow up with PCP in the next 4-6 days if not improving sooner if worse. Sepsis Event Note - Focused Exam Vital Signs: Vital Signs Temp Pulse Resp BP Pulse Ox 04/15/20 12:30 112 H 20 138/68 99 04/15/20 11:27 115 H 20 155/62 H 99 04/15/20 10:05 36.6 C 120 H 24 H 125/74 99 Date Exam was Performed: 04/15/20 Time Exam was Performed: 15:15 - My Orders Last 24 Hours: My Active Orders 04/15/20 10:06 EKG Documentation Completion [RC] STAT 04/15/20 10:41 RT Aerosol Therapy [RC] ASDIRECTED - Assessment/Plan Last 24 Hours: My Active Orders 04/15/20 10:06 EKG Documentation Completion [RC] STAT 04/15/20 10:41 RT Aerosol Therapy [RC] ASDIRECTED
[2020-04-15 10:50] LABS: CHLORIDE,CL 98 mmol/L (98-107); SODIUM,NA 143 mmol/L (136-145)
[2020-04-15 10:51] LABS: ANION GAP 5.9 mmol/L (10-20)
--- NOTE | 2020-04-15 10:51 | CR ---
[id number] RAD/RAD Chest PA And Lateral EXAM: FRONTAL AND LATERAL CHEST INDICATION: PALPITATIONS PAIN. COMPARISON: January 17, 2020. DISCUSSION: Hyperinflation is compatible with chronic obstructive pulmonary disease. No acute infiltrates are identified. Normal heart size. IMPRESSION: 1. No acute findings. El Dhaliwal MD 04/15/20 [id number] Thank you for allowing us to participate in the care of your patient.
[2020-04-15] MEDS ORDERED: Azithromycin 250 MG Tab PO ONE (11:23)
[2020-04-15] MEDS ORDERED: methylPREDNISolone Sodium Succinate 125 MG/2 ML SDV IVPUSH ONE (11:23)
[2020-04-15 13:02] VITALS: BP 138/68; PULSE 112
== END 2020-04-15 12:40 | disposition home or self-care (01) ==
LOC: VM.ED 10:05
DX: J44.1 Chronic obstructive pulmonary disease with (acute) exacerbation (principal); F41.9 Anxiety disorder, unspecified; Z88.6 Allergy status to analgesic agent; Z79.899 Other long term (current) drug therapy
CPT/HCPCS: 36415; 71046; 80053; 84484; 85025; 86140; 93005; 94640; 94644; 96361; 96374; 96375; 99285; A9270; J2060; J2930; J7120; 93010; 99284-GF; J7613-GY

== ENCOUNTER 2020-12-04 19:41 | Inpatient (IN) | payer MEDICARE ==
[2020-12-04] MEDS ORDERED: Sodium Chloride 0.9% 10 ML Syringe FLUSH PRN (19:56)
[2020-12-04 20:02] VITALS: BP 175/70; PULSE 98
--- NOTE | 2020-12-04 20:21 | EDM.PDOC ---
ED HPI GENERAL MEDICAL PROBLEM - General Chief Complaint: General Stated Complaint: SHORTNESS OF BREATH, HIT HEAD, NOT EATING Time Seen by Provider: 12/04/20 19:45 Source of Information: Reports: Patient History Limitations: Reports: No Limitations - History of Present Illness INITIAL COMMENTS - FREE TEXT/NARRATIVE: Pt. presents to ER via EMS. stated to EMS that she has not been getting out of bed and refuses to eat or drink today. She has been more fatigued recently. Pt. was for the most part non-communicative with EMS, refusing assessment, IV, etc. stating that she didn't want to go into the hospital, but eventually allowing transport. Pt. has a history of chronic pain and is on [place]. She also takes Ativan, which could be contributing to her fatigue.She also has a history of alcoholism and is currently in remission. She also has a history of severe COPD and is refusing to see pulmonology. On exam, patient was really unwilling to answer any questions about her history, symptoms, etc. Her daughter, Nathen, called the ER and is a wealth of knowledge and is currently coming to be with her Mom. She states that she has been falling recently, the last time that she was aware of was about a month ago. She has not recently been ill that she is aware of. She states that her Mother is usually quite alert and states that this decline in function is acute. Pt. unwilling to specify if she has any focal pain, stating that she "hurts all over". She did, however, deny any abdominal pain. Onset: Today Onset Date: 12/04/20 Location: Reports: Generalized - Related Data Allergies Allergy/AdvReac Type Severity Reaction Status Date / Time aspirin AdvReac Bleeding Verified 12/04/20 20:04 Home Meds: Home Meds Albuterol Sulfate [Albuterol Sulfate HFA] 2 puff INH Q4HR PRN 03/22/15 [History] Albuterol/Ipratropium [DuoNeb 3.0-0.5 MG/3 ML] 3 ml NEB QID 09/03/17 [History] Glycopyrrolate/Formoterol Fum [Bevespi Aerosphere Inhaler] 10.7 gm IH BID #1 hfa.[email or web address] 09/05/17 [Rx] LORazepam [Lorazepam] 0.5 mg PO BID PRN #9 tablet 04/15/20 [Rx] Acetaminophen/HYDROcodone [Glasgow 325-5 MG] 1 tab PO Q12H PRN 12/04/20 [History] Propranolol [Inderal] 20 mg PO DAILY 12/04/20 [History] Past Medical History Cardiovascular History: Reports: Heart Murmur, Other (See Below) Other Cardiovascular History: Rheumatic fever as a child. Respiratory History: Reports: COPD [employer] History: Reports: , Other (See Below) Other [employer] History: Tubal ligation Musculoskeletal History: Reports: Back Pain, Chronic, Other (See Below) Other Musculoskeletal History: Rotator cuff that needs replacements. - Infectious Disease History Infectious Disease History: Reports: Chicken Pox, Rheumatic Fever - Past Surgical History Musculoskeletal Surgical History: Reports: None Social & Family History - Family History Family Medical History: No Pertinent Family History - Caffeine Use Caffeine Use: Reports: Coffee, Soda ED ROS GENERAL - Review of Systems Review Of Systems: See Below Constitutional: Reports: Malaise, Fatigue HEENT: Reports: No Symptoms Respiratory: Reports: No Symptoms Cardiovascular: Reports: No Symptoms Endocrine: Reports: No Symptoms GI/Abdominal: Reports: No Symptoms : Reports: No Symptoms Musculoskeletal: Reports: No Symptoms Skin: Reports: No Symptoms Neurological: Reports: Confusion, Weakness Psychiatric: Reports: No Symptoms Hematologic/Lymphatic: Reports: No Symptoms Free Text/Narrative/Comment: ROS is largely unknown. Please see HPI. When asked, she reports negative to everything, other than she hurts everywhere. ED EXAM, GENERAL - Physical Exam Exam: See Below Exam Limited By: Uncooperative General Appearance: No Apparent Distress, Other (somnolent, not wanting to be treated) Eye Exam: Bilateral Eye: EOMI, Normal Fundi, Normal Inspection, PERRL Throat/Mouth: Normal Inspection, Normal Lips, Normal Oropharynx, No Airway Compromise Head: Atraumatic, Normocephalic Neck: Supple, Non-Tender, Other (Refuses ROM testing) Respiratory/Chest: No Respiratory Distress, No Accessory Muscle Use, Decreased Breath Sounds, Crackles Cardiovascular: Normal Peripheral Pulses, Regular Rate, Rhythm, No Edema, No JVD, No Murmur Peripheral Pulses: 4+: Radial (L) GI/Abdominal: Soft, Non-Tender, No Organomegaly, No Distention, No Mass (Female) Exam: Deferred Rectal (Female) Exam: Deferred Back Exam: Normal Inspection Extremities: Normal Inspection, Normal Range of Motion, Non-Tender, No Pedal Edema, Normal Capillary Refill Neurological: CN II-XII Intact, No Motor/Sensory Deficits, Other (Moves all extremities. Unable to answer any questions regarding the exam.) Psychiatric: Normal Affect, Normal Mood Skin Exam: Warm, Dry, Intact, Normal Color, No Rash Lymphatic: No Adenopathy #1 Interpretation Rhythm: NSR Henderson: Normal P-Wave: Present QRS: Normal ST-T: Normal QT: Normal Course - Vital Signs Last Recorded V/S: Last Vital Signs Temp 36.2 C 12/04/20 19:45 Pulse 98 12/04/20 19:45 Resp 24 H 12/04/20 19:45 BP 175/70 H 12/04/20 19:45 Pulse Ox 99 12/04/20 19:45 - Orders/Labs/Meds Orders: Active Orders 24 hr Category Date Time Status EKG Documentation Completion [RC] STAT Care 12/04/20 19:56 Active Cervical Spine wo Cont [CT] Stat Exams 12/04/20 19:55 Taken Chest 1V Frontal [CR] Stat Exams 12/04/20 19:57 Taken Head wo Cont [CT] Stat Exams 12/04/20 19:55 Taken CULTURE BLOOD [BC] Stat Lab 12/04/20 20:30 Received CULTURE BLOOD [BC] Stat Lab 12/04/20 20:35 Received Sodium Chloride 0.9% [Saline Flush] Med 12/04/20 19:56 Active 10 ml FLUSH ASDIRECTED PRN Blood Culture x2 Reflex Set [OM.PC] Stat Oth 12/04/20 19:58 Ordered Peripheral IV Insertion Adult [OM.PC] Routine Oth 12/04/20 19:58 Ordered Medication Orders Sodium Chloride (Saline Flush) 10 ml FLUSH ASDIRECTED PRN PRN Reason: Keep Vein Open Labs: Laboratory Tests 12/04/20 12/04/20 12/04/20 Range/Units 19:59 20:30 20:30 WBC 5.9 (4.0-10.0) x10^3/uL RBC 3.72 L (4.00-5.50) x10^6/uL Hgb 9.6 L D (12.0-16.0) g/dL Hct 36.2 (33.0-47.0) % MCV 97.3 H (78.0-93.0) fL MCH 25.8 L (26.0-32.0) pg MCHC 26.5 L (32.0-36.0) g/dL RDW Coeff of Luis Enrique 13.8 (10.0-15.0) % Plt Count 183 D (130-400) x10^3/uL Neut % (Auto) 84.0 H (50.0-80.0) % Lymph % (Auto) 9.0 L (25.0-50.0) % Sandoval % (Auto) 6.3 (2.0-11.0) % Eos % (Auto) 0.2 (0.0-4.0) % Baso % (Auto) 0.5 (0.2-1.2) % PT 9.3 L (9.5-12.3) SEC INR 0.8 L (2.0-3.5) APTT (25.6-32.8) SEC POC ABG pH (7.35-7.45) pH ABG pH POC ABG pCO2 (35-48) mmHg ABG pCO2 POC ABG pO2 (83-108) mmHg ABG pO2 POC ABG HCO3 (21-28) mmol/L ABG HCO3 POC ABG Total CO2 (22-29) mmol/L ABG Total CO2 POC ABG O2 Sat % ABG O2 Saturation ABG O2 Content POC ABG Base Excess (-2-3) mmol/L ABG Base Excess FiO2 POC FiO2 Blood Gas Comments Sodium (136-145) mmol/L Potassium (3.5-5.1) mmol/L Chloride (98-107) mmol/L Carbon Dioxide (21-32) mmol/L Anion Gap (5-15) mmol/L BUN (7-18) mg/dL Creatinine (0.55-1.02) mg/dL Est Cr Clr Drug Dosing mL/min Estimated GFR (MDRD) Glucose (74-106) mg/dL Lactic Acid (0.4-2.0) mmol/L Calcium (8.5-10.1) mg/dL Corrected Calcium (8.5-10.1) mg/dL Magnesium (1.8-2.4) mg/dL Total Bilirubin (0.2-1.0) mg/dL AST (15-37) U/L ALT (14-59) U/L Alkaline Phosphatase (46-116) U/L Troponin I (<=0.056) ng/mL C-Reactive Protein (<=0.9) mg/dL Total Protein (6.4-8.2) g/dL Albumin (3.4-5.0) g/dL Globulin Albumin/Globulin Ratio TSH, Ultra Sensitive (0.358-3.74) uIU/mL Urine Color (YELLOW) Urine Appearance (CLEAR) Urine pH (5.0-8.0) Ur Specific [place] Urine Protein (NEGATIVE) mg/dL Urine Glucose (UA) (NEGATIVE) mg/dL Urine Ketones (NEGATIVE) mg/dL Urine Occult Blood (NEGATIVE) Urine Nitrite (NEGATIVE) Urine Bilirubin (NEGATIVE) Urine Urobilinogen (0.2) EU/dL Ur Leukocyte Esterase (NEGATIVE) Urine RBC (NOT SEEN) /HPF Urine WBC (NOT SEEN) /HPF Ur Squamous Epith Cells (NEGATIVE) /HPF Urine Bacteria (NEGATIVE) /HPF Urine Mucus (NEGATIVE) /LPF Urine Opiates Screen (NEGATIVE) Ur Buprenorphine Scrn (NEGATIVE) Ur Oxycodone Screen (NEGATIVE) Ur EDDP (Meth Metab) (NEGATIVE) Urine Methadone Screen (NEGATIVE) Ur Barbiturates Screen (NEGATIVE) Ur Tricyclics Screen (NEGATIVE) Ur Phencyclidine Scrn (NEGATIVE) Ur Amphetamine Screen (NEGATIVE) U Methamphetamines Scrn (NEGATIVE) Urine MDMA Screen (NEGATIVE) U Benzodiazepines Scrn (NEGATIVE) U Cocaine Metab Screen (NEGATIVE) U Marijuana (THC) Screen (NEGATIVE) Ethyl Alcohol (0-3) mg/dL SARS CoV-2 RNA Rapid MARIO Negative (NEGATIVE) 12/04/20 12/04/20 12/04/20 Range/Units 20:30 20:30 20:30 WBC (4.0-10.0) x10^3/uL RBC (4.00-5.50) x10^6/uL Hgb (12.0-16.0) g/dL Hct (33.0-47.0) % MCV (78.0-93.0) fL MCH (26.0-32.0) pg MCHC (32.0-36.0) g/dL RDW Coeff of Luis Enrique (10.0-15.0) % Plt Count (130-400) x10^3/uL Neut % (Auto) (50.0-80.0) % Lymph % (Auto) (25.0-50.0) % Sandoval % (Auto) (2.0-11.0) % Eos % (Auto) (0.0-4.0) % Baso % (Auto) (0.2-1.2) % PT (9.5-12.3) SEC INR (2.0-3.5) APTT 19.4 L (25.6-32.8) SEC POC ABG pH (7.35-7.45) pH ABG pH POC ABG pCO2 (35-48) mmHg ABG pCO2 POC ABG pO2 (83-108) mmHg ABG pO2 POC ABG HCO3 (21-28) mmol/L ABG HCO3 POC ABG Total CO2 (22-29) mmol/L ABG Total CO2 POC ABG O2 Sat % ABG O2 Saturation ABG O2 Content POC ABG Base Excess (-2-3) mmol/L ABG Base Excess FiO2 POC FiO2 Blood Gas Comments Sodium 143 (136-145) mmol/L Potassium 4.5 (3.5-5.1) mmol/L Chloride 94 L (98-107) mmol/L Carbon Dioxide 105 H D (21-32) mmol/L Anion Gap -1.5 L (5-15) mmol/L BUN 15 (7-18) mg/dL Creatinine 0.5 L (0.55-1.02) mg/dL Est Cr Clr Drug Dosing 95.27 mL/min Estimated GFR (MDRD) > 60 Glucose 124 H (74-106) mg/dL Lactic Acid 0.8 (0.4-2.0) mmol/L Calcium 9.3 (8.5-10.1) mg/dL Corrected Calcium 9.70 (8.5-10.1) mg/dL Magnesium 2.0 (1.8-2.4) mg/dL Total Bilirubin 0.4 (0.2-1.0) mg/dL AST 28 (15-37) U/L ALT 21 (14-59) U/L Alkaline Phosphatase 84 (46-116) U/L Troponin I 0.083 H* (<=0.056) ng/mL C-Reactive Protein 0.3 (<=0.9) mg/dL Total Protein 8.0 (6.4-8.2) g/dL Albumin 3.5 (3.4-5.0) g/dL Globulin 4.5 Albumin/Globulin Ratio 0.78 TSH, Ultra Sensitive 0.117 L (0.358-3.74) uIU/mL Urine Color (YELLOW) Urine Appearance (CLEAR) Urine pH (5.0-8.0) Ur Specific [place] Urine Protein (NEGATIVE) mg/dL Urine Glucose (UA) (NEGATIVE) mg/dL Urine Ketones (NEGATIVE) mg/dL Urine Occult Blood (NEGATIVE) Urine Nitrite (NEGATIVE) Urine Bilirubin (NEGATIVE) Urine Urobilinogen (0.2) EU/dL Ur Leukocyte Esterase (NEGATIVE) Urine RBC (NOT SEEN) /HPF Urine WBC (NOT SEEN) /HPF Ur Squamous Epith Cells (NEGATIVE) /HPF Urine Bacteria (NEGATIVE) /HPF Urine Mucus (NEGATIVE) /LPF Urine Opiates Screen (NEGATIVE) Ur Buprenorphine Scrn (NEGATIVE) Ur Oxycodone Screen (NEGATIVE) Ur EDDP (Meth Metab) (NEGATIVE) Urine Methadone Screen (NEGATIVE) Ur Barbiturates Screen (NEGATIVE) Ur Tricyclics Screen (NEGATIVE) Ur Phencyclidine Scrn (NEGATIVE) Ur Amphetamine Screen (NEGATIVE) U Methamphetamines Scrn (NEGATIVE) Urine MDMA Screen (NEGATIVE) U Benzodiazepines Scrn (NEGATIVE) U Cocaine Metab Screen (NEGATIVE) U Marijuana (THC) Screen (NEGATIVE) Ethyl Alcohol 3 (0-3) mg/dL SARS CoV-2 RNA Rapid MARIO (NEGATIVE) 12/04/20 12/04/20 12/04/20 Range/Units 20:40 20:40 21:32 WBC (4.0-10.0) x10^3/uL RBC (4.00-5.50) x10^6/uL Hgb (12.0-16.0) g/dL Hct (33.0-47.0) % MCV (78.0-93.0) fL MCH (26.0-32.0) pg MCHC (32.0-36.0) g/dL RDW Coeff of Luis Enrique (10.0-15.0) % Plt Count (130-400) x10^3/uL Neut % (Auto) (50.0-80.0) % Lymph % (Auto) (25.0-50.0) % Sandoval % (Auto) (2.0-11.0) % Eos % (Auto) (0.0-4.0) % Baso % (Auto) (0.2-1.2) % PT (9.5-12.3) SEC INR (2.0-3.5) APTT (25.6-32.8) SEC POC ABG pH 7.20 L* (7.35-7.45) pH ABG pH Cancelled POC ABG pCO2 149 H* (35-48) mmHg ABG pCO2 Cancelled POC ABG pO2 177 H (83-108) mmHg ABG pO2 Cancelled POC ABG HCO3 58.3 H (21-28) mmol/L ABG HCO3 Cancelled POC ABG Total CO2 > 50.0 H (22-29) mmol/L ABG Total CO2 Cancelled POC ABG O2 Sat 98.9 % ABG O2 Saturation Cancelled ABG O2 Content Cancelled POC ABG Base Excess > 30 H (-2-3) mmol/L ABG Base Excess Cancelled FiO2 Cancelled POC FiO2 0.32 Blood Gas Comments Cancelled Sodium (136-145) mmol/L Potassium (3.5-5.1) mmol/L Chloride (98-107) mmol/L Carbon Dioxide (21-32) mmol/L Anion Gap (5-15) mmol/L BUN (7-18) mg/dL Creatinine (0.55-1.02) mg/dL Est Cr Clr Drug Dosing mL/min Estimated GFR (MDRD) Glucose (74-106) mg/dL Lactic Acid (0.4-2.0) mmol/L Calcium (8.5-10.1) mg/dL Corrected Calcium (8.5-10.1) mg/dL Magnesium (1.8-2.4) mg/dL Total Bilirubin (0.2-1.0) mg/dL AST (15-37) U/L ALT (14-59) U/L Alkaline Phosphatase (46-116) U/L Troponin I (<=0.056) ng/mL C-Reactive Protein (<=0.9) mg/dL Total Protein (6.4-8.2) g/dL Albumin (3.4-5.0) g/dL Globulin Albumin/Globulin Ratio TSH, Ultra Sensitive (0.358-3.74) uIU/mL Urine Color Yellow (YELLOW) Urine Appearance Slightly cloudy H (CLEAR) Urine pH 5.5 (5.0-8.0) Ur Specific Eagan >=1.030 Urine Protein 100 H (NEGATIVE) mg/dL Urine Glucose (UA) Negative (NEGATIVE) mg/dL Urine Ketones Negative (NEGATIVE) mg/dL Urine Occult Blood Moderate H (NEGATIVE) Urine Nitrite Negative (NEGATIVE) Urine Bilirubin Small H (NEGATIVE) Urine Urobilinogen 0.2 (0.2) EU/dL Ur Leukocyte Esterase Negative (NEGATIVE) Urine RBC 10-20 H (NOT SEEN) /HPF Urine WBC 0-5 (NOT SEEN) /HPF Ur Squamous Epith Cells Occasional H (NEGATIVE) /HPF Urine Bacteria Rare (NEGATIVE) /HPF Urine Mucus Rare H (NEGATIVE) /LPF Urine Opiates Screen (NEGATIVE) Ur Buprenorphine Scrn (NEGATIVE) Ur Oxycodone Screen (NEGATIVE) Ur EDDP (Meth Metab) (NEGATIVE) Urine Methadone Screen (NEGATIVE) Ur Barbiturates Screen (NEGATIVE) Ur Tricyclics Screen (NEGATIVE) Ur Phencyclidine Scrn (NEGATIVE) Ur Amphetamine Screen (NEGATIVE) U Methamphetamines Scrn (NEGATIVE) Urine MDMA Screen (NEGATIVE) U Benzodiazepines Scrn (NEGATIVE) U Cocaine Metab Screen (NEGATIVE) U Marijuana (THC) Screen (NEGATIVE) Ethyl Alcohol (0-3) mg/dL SARS CoV-2 RNA Rapid MARIO (NEGATIVE) 12/04/20 Range/Units 21:32 WBC (4.0-10.0) x10^3/uL RBC (4.00-5.50) x10^6/uL Hgb (12.0-16.0) g/dL Hct (33.0-47.0) % MCV (78.0-93.0) fL MCH (26.0-32.0) pg MCHC (32.0-36.0) g/dL RDW Coeff of Luis Enrique (10.0-15.0) % Plt Count (130-400) x10^3/uL Neut % (Auto) (50.0-80.0) % Lymph % (Auto) (25.0-50.0) % Sandoval % (Auto) (2.0-11.0) % Eos % (Auto) (0.0-4.0) % Baso % (Auto) (0.2-1.2) % PT (9.5-12.3) SEC INR (2.0-3.5) APTT (25.6-32.8) SEC POC ABG pH (7.35-7.45) pH ABG pH POC ABG pCO2 (35-48) mmHg ABG pCO2 POC ABG pO2 (83-108) mmHg ABG pO2 POC ABG HCO3 (21-28) mmol/L ABG HCO3 POC ABG Total CO2 (22-29) mmol/L ABG Total CO2 POC ABG O2 Sat % ABG O2 Saturation ABG O2 Content POC ABG Base Excess (-2-3) mmol/L ABG Base Excess FiO2 POC FiO2 Blood Gas Comments Sodium (136-145) mmol/L Potassium (3.5-5.1) mmol/L Chloride (98-107) mmol/L Carbon Dioxide (21-32) mmol/L Anion Gap (5-15) mmol/L BUN (7-18) mg/dL Creatinine (0.55-1.02) mg/dL Est Cr Clr Drug Dosing mL/min Estimated GFR (MDRD) Glucose (74-106) mg/dL Lactic Acid (0.4-2.0) mmol/L Calcium (8.5-10.1) mg/dL Corrected Calcium (8.5-10.1) mg/dL Magnesium (1.8-2.4) mg/dL Total Bilirubin (0.2-1.0) mg/dL AST (15-37) U/L ALT (14-59) U/L Alkaline Phosphatase (46-116) U/L Troponin I (<=0.056) ng/mL C-Reactive Protein (<=0.9) mg/dL Total Protein (6.4-8.2) g/dL Albumin (3.4-5.0) g/dL Globulin Albumin/Globulin Ratio TSH, Ultra Sensitive (0.358-3.74) uIU/mL Urine Color (YELLOW) Urine Appearance (CLEAR) Urine pH (5.0-8.0) Ur Specific Eagan Urine Protein (NEGATIVE) mg/dL Urine Glucose (UA) (NEGATIVE) mg/dL Urine Ketones (NEGATIVE) mg/dL Urine Occult Blood (NEGATIVE) Urine Nitrite (NEGATIVE) Urine Bilirubin (NEGATIVE) Urine Urobilinogen (0.2) EU/dL Ur Leukocyte Esterase (NEGATIVE) Urine RBC (NOT SEEN) /HPF Urine WBC (NOT SEEN) /HPF Ur Squamous Epith Cells (NEGATIVE) /HPF Urine Bacteria (NEGATIVE) /HPF Urine Mucus (NEGATIVE) /LPF Urine Opiates Screen Negative (NEGATIVE) Ur Buprenorphine Scrn Negative (NEGATIVE) Ur Oxycodone Screen Negative (NEGATIVE) Ur EDDP (Meth Metab) Negative (NEGATIVE) Urine Methadone Screen Negative (NEGATIVE) Ur Barbiturates Screen Negative (NEGATIVE) Ur Tricyclics Screen Negative (NEGATIVE) Ur Phencyclidine Scrn Negative (NEGATIVE) Ur Amphetamine Screen Positive H (NEGATIVE) U Methamphetamines Scrn Positive H (NEGATIVE) Urine MDMA Screen Negative (NEGATIVE) U Benzodiazepines Scrn Negative (NEGATIVE) U Cocaine Metab Screen Negative (NEGATIVE) U Marijuana (THC) Screen Positive H (NEGATIVE) Ethyl Alcohol (0-3) mg/dL SARS CoV-2 RNA Rapid MARIO (NEGATIVE) Meds: Medications Generic Name Dose Route Start Last Admin Trade Name Freq PRN Reason Stop Dose Admin Sodium Chloride 10 ml 12/04/20 19:56 Saline Flush FLUSH ASDIRECTED PRN Keep Vein Open Discontinued Medications Generic Name Dose Route Start Last Admin Trade Name Freq PRN Reason Stop Dose Admin Ceftriaxone Sodium 1 gm 12/04/20 22:00 12/04/20 22:29 Rocephin IVPUSH 12/04/20 22:01 1 gm STAT ONE Administration Lorazepam 1 mg 12/04/20 22:27 12/04/20 22:33 Ativan IVPUSH 12/04/20 22:28 1 mg STAT ONE Administration Methylprednisolone Sodium Succinate 125 mg 12/04/20 21:36 12/04/20 22:27 Solu-Medrol IVPUSH 12/04/20 21:37 125 mg ONETIME ONE Administration - Radiology Interpretation Free Text/Narrative:: CT brain negative for acute pathology CT C-spine negative for acute pathology Port chest x-ray reveals R medial chest consolidation - Re-Assessments/Exams Free Text/Narrative Re-Assessment/Exam: 12/04/20 22:35 Pt. was given IV solu medrol 125mg IV and rocephin 1 gm IV. Pt. agitated, tearful, attempting to climb out of bed. She was given ativan 1mg IV. Departure - Departure Time of Disposition: 22:36 Disposition: Home, Self-Care 01 Clinical Impression: COPD exacerbation - Discharge Information Sepsis Event Note (ED) - Evaluation Sepsis Screening Result: No Definite Risk - Focused Exam Vital Signs: Vital Signs Temp Pulse Resp BP Pulse Ox 12/04/20 19:45 36.2 C 98 24 H 175/70 H 99 - Problem List Review Problem List Initiated/Reviewed/Updated: Yes - My Orders Last 24 Hours: My Active Orders 12/04/20 19:55 Cervical Spine wo Cont [CT] Stat Head wo Cont [CT] Stat 12/04/20 19:56 EKG Documentation Completion [RC] STAT Sodium Chloride 0.9% [Saline Flush] 10 ml FLUSH ASDIRECTED PRN 12/04/20 19:57 Chest 1V Frontal [CR] Stat 12/04/20 19:58 Blood Culture x2 Reflex Set [OM.PC] Stat Peripheral IV Insertion Adult [OM.PC] Routine 12/04/20 20:30 CULTURE BLOOD [BC] Stat 12/04/20 20:35 CULTURE BLOOD [BC] Stat - Assessment/Plan Last 24 Hours: My Active Orders 12/04/20 19:55 Cervical Spine wo Cont [CT] Stat Head wo Cont [CT] Stat 12/04/20 19:56 EKG Documentation Completion [RC] STAT Sodium Chloride 0.9% [Saline Flush] 10 ml FLUSH ASDIRECTED PRN 12/04/20 19:57 Chest 1V Frontal [CR] Stat 12/04/20 19:58 Blood Culture x2 Reflex Set [OM.PC] Stat Peripheral IV Insertion Adult [OM.PC] Routine 12/04/20 20:30 CULTURE BLOOD [BC] Stat 12/04/20 20:35 CULTURE BLOOD [BC] Stat Plan: Discussed findings at length with pt. daughter. Pt. has made it known that she does not wish to be intubated or have CPR. Daughter was informed that this is a life threatening condition and understands. She is attempting to contact family to come and see the patient. She will be admitted acutely for now. Brad Caceres will be admitting for Dr. Lima who is covering for Dr. Zamarripa. She is a code 2, DNR/DNI.
[2020-12-04 21:08] LABS: PCO2 ARTERIAL,POC 149 mmHg (35-48)
[2020-12-04 21:23] LABS: CHLORIDE,CL 94 mmol/L (98-107); SODIUM,NA 143 mmol/L (136-145)
[2020-12-04 21:24] LABS: ANION GAP -1.5 mmol/L (5-15)
[2020-12-04] MEDS ORDERED: methylPREDNISolone Sodium Succinate 125 MG/2 ML SDV IVPUSH ONE (21:36)
[2020-12-04 21:41] LABS: BARBITURATE SCREEN,URINE NEGATIVE (NEGATIVE); BENZODIAZEPINES SCREEN,URINE NEGATIVE (NEGATIVE); EDDP,URINE SCREEN NEGATIVE (NEGATIVE); METHAMPHETAMINE SCREEN, URINE POSITIVE (NEGATIVE); TCA SCREEN,URINE NEGATIVE (NEGATIVE); THC SCREEN,URINE 50 NG/ML POSITIVE (NEGATIVE)
[2020-12-04] MEDS ORDERED: cefTRIAXone 1 GM Vial IVPUSH ONE (22:00)
[2020-12-04] MEDS ORDERED: LORazepam 2 MG/ML SDV IVPUSH ONE (22:27)
[2020-12-04] MEDS ORDERED: Atropine 1% Ophth Soln 5 ML BOTTLE SL PRN (23:31)
[2020-12-04] MEDS ORDERED: Ondansetron 4 MG/2 ML SDV IVPUSH PRN (23:31)
[2020-12-04] MEDS ORDERED: Lidocaine 2% Viscous Solution 15 ML Cup PO PRN (23:31)
[2020-12-04] MEDS ORDERED: Glycopyrrolate 0.2 MG/ML 2 ML SDV IVPUSH PRN (23:35)
[2020-12-04] MEDS ORDERED: LORazepam 2 MG/ML SDV IVPUSH PRN (23:35)
[2020-12-04] MEDS ORDERED: Flumazenil 0.1 MG/ML 5 ML MDV IVPUSH PRN (23:35)
[2020-12-04] MEDS ORDERED: Albuterol/Ipratropium 3.0-0.5 MG/3 ML Neb Soln NEB PRN (23:38)
[2020-12-05] MEDS: Morphine 10 MG/ML SDV IV PRN ×4 (00:55→03:00)
--- NOTE | 2020-12-05 08:18 | CT ---
[id number] CT/CT Head WO IV EXAM: CT Head WO IV CLINICAL DATA: CHANGE IN MENTAL STATUS COMPARISON: NO PREVIOUS SIMILAR EXAM IS AVAILABLE FOR COMPARISON. FINDINGS: There is no mass or mass effect. There is no hemorrhage or hydrocephalus. There are no extra-axial fluid collections. There are no sites of abnormal attenuation. IMPRESSION: NO PLAIN CT EVIDENCE OF ACUTE INTRACRANIAL PROCESS. Russel Winchester MD 12/05/20 0817 Thank you for allowing us to participate in the care of your patient.
--- NOTE | 2020-12-05 08:20 | CT ---
[id number] CT/CT Cervical Spine WO IV Exam: CT Cervical Spine WO IV Clinical Data: CHANGE IN MENTAL STATUS COMPARISON: NO PREVIOUS SIMILAR EXAM IS AVAILABLE FINDINGS: There are degenerative changes There is no fracture or subluxation There is severe centrilobular emphysema The prevertebral soft tissues are unremarkable IMPRESSION: NO FRACTURE OR SUBLUXATION SEVERE COPD Russel Winchester MD 12/05/20 0819 Thank you for allowing us to participate in the care of your patient.
--- NOTE | 2020-12-05 08:24 | CR ---
[id number] RAD/RAD Chest PA or AP 1V EXAM: SINGLE VIEW CHEST. INDICATION: CHANGE IN MENTAL STATUS COMPARISON: CORRELATION IS MADE WITH CHEST RADIOGRAPHS DATING BACK TO MARCH 22, 2015 CORRELATION ALSO IS MADE WITH TODAY'S CT SOFT TISSUE WINDOW OF THE CERVICAL SPINE FINDINGS: The CAT scan today demonstrated severe centrilobular emphysema There is a significant left side hyperlucent lung This is stable since March 2015 There is no pleural interface seen to suggest a pneumothorax The CAT scan today did not show pneumothorax There is no shift of the mediastinum The cardiac silhouette is stable IMPRESSION: SIGNIFICANTLY ABNORMAL EXAM PA AND LATERAL CHEST FOLLOW UP SUGGESTED NO DEFINITE PNEUMOTHORAX SEEN SEVERE CENTRILOBULAR COPD SEEN ON CAT SCAN 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
--- NOTE | 2020-12-05 16:05 | DISCH ---
HISTORY OF PRESENT ILLNESS: This 65-year-old female patient was brought to the emergency room at [facility] for fatigue, shortness of breath, malnutrition. The workup in the emergency room showed the patient having a severe COPD exacerbation, delirium, and agitation. The patient has a history of alcohol and is currently in remission. The patient also has a history of chronic back pain for which she takes [place] on a daily basis. Workup in the emergency room showed the patient is severely acidotic with arterial pH of 7.2, pCO2 of 149, PO2 of 177, and sodium bicarb of 58.3. The patient did have a positive troponin of 0.083. The patient's urine was positive for methamphetamines and marijuana. CT scan was obtained of the head, which did not show any acute pathology. Chest x-ray showed severe COPD. Given the patient's presentation and laboratory work, decision was made by the family for comfort cares and end of life. BRIEF HOSPITAL COURSE: The patient was admitted acutely to the medical-surgical [facility]. The patient was started on comfort care orders. The patient was made a DNI/DNR comfort cares only. The patient had agonal breathing. The patient was unresponsive. Family was at bedside. COMPLICATIONS: None. DIET: N.p.o. ACTIVITY: Bedrest. DISCHARGE LABORATORY WORK: 1. CBC: White blood cell count 5.9, hemoglobin 9.6, hematocrit 36.2, platelets 183,000. 2. PT 9.3, INR is 0.8, PTT 19.4. 3. Arterial blood gas; pH 7.20, pCO2 of 149, PO2 of 177, bicarb 58.3. 4. CMP: Sodium 143, potassium 4.5, chloride 94, CO2 of 105, anion gap -1.5, BUN 15, creatinine 0.5, GFR greater than 60. Glucose 124, calcium 9.3, magnesium 2.0, AST 28, ALT 21, alkaline phosphatase 84, total protein 8.0. 5. High troponin 0.083. 6. C-reactive protein 0.3. 7. Lactic acid 0.8. 8. TSH is 0.117. 9. Urinalysis was negative, however, she was positive for methamphetamines and marijuana. DISCHARGE MEDICATIONS: None. REVIEW OF SYSTEMS: Unable to obtain due to the patient's current condition. PHYSICAL EXAMINATION: Vital Signs: Not obtained due to . Neurological: The patient is unresponsive. The patient does not respond to noxious stimuli. Respiratory: No spontaneous respiration. Cardiovascular: No spontaneous heart rate. ASSESSMENT: 1. Severe chronic obstructive pulmonary disease exacerbation. 2. CO2 narcosis. 3. Chronic back pain. 4. Methamphetamine abuse. 5. Marijuana abuse. PLAN: The patient was pronounced at 4:15 a.m. Family at bedside. The patient's body was released to the home. The patient is not a donor candidate. TB: 12/05/2020 09:57:00 MODL: 12/05/2020 15:56:28 /[id number]
== END 2020-12-05 04:15 | disposition expired | DRG 191 ==
LOC: VM.ED 19:41 → VM.MS 22:27
PROVIDERS: ADMIT Nurse Practitioner Family; ATTEND Family Medicine
DX: J44.1 Chronic obstructive pulmonary disease with (acute) exacerbation (principal); R01.1 Cardiac murmur, unspecified; E46 Unspecified protein-calorie malnutrition; G89.29 Other chronic pain; M54.9 Dorsalgia, unspecified; R41.0 Disorientation, unspecified; R45.1 Restlessness and agitation; Z51.5 Encounter for palliative care; Z66 Do not resuscitate; T58.91XA Toxic effect of carbon monoxide from unspecified source, accidental (unintentional), initial encounter; F10.21 Alcohol dependence, in remission; R06.89 Other abnormalities of breathing; F15.10 Other stimulant abuse, uncomplicated; F12.10 Cannabis abuse, uncomplicated; Z20.822 Contact with and (suspected) exposure to COVID-19; Z68.30 Body mass index [BMI] 30.0-30.9, adult; Z88.8 Allergy status to other drugs, medicaments and biological substances; Z98.51 Tubal ligation status; Z79.899 Other long term (current) drug therapy; Z91.81 History of falling
CPT/HCPCS: 36415; 36600; 70450; 71045; 72125; 80053; 80305-QW; 80307; 81001; 82803; 83605; 83735; 84443; 84484; 85025; 85610; 85730; 86140; 87040; 93005; 93010; 96374; 96375; 99223; 99238; 99285; 99285-25; J0696; J2060; J2270; J2930; U0002